=== PATIENT | male | born 1945 | race Caucasian/White ===

== ENCOUNTER 2017-05-20 11:05 | Inpatient (IN) | payer MEDICARE ==
[~2017-05-20] VITALS: Ht 182.9 cm; Wt 102.0 kg
[~2017-05-20 11:05] MED LIST: ASPI-496 PO; BENA10TA2 PO; CARV3.122 PO; FURO20TA3 PO; GABA-826 PO; GLIM4TAB2 PO; INSU100V13 SQ; METF10002 PO; OMEP40CA6 PO; RIVA15TA PO; SIMV40TA3 PO; SULF1TAB24 PO
[2017-05-20 12:24] VITALS: BP 163/73
[2017-05-20 12:43] LABS: HEMATOCRIT 44.3 % (39.2-51.8); HEMOGLOBIN 14.3 g/dL (13.7-18.0); WHITE BLOOD COUNT 9.7 x10^3/uL (3.4-10)
[2017-05-20 12:57] LABS: ASPARTATE AMINO TRANSFERASE 19 U/L (15-37); BLOOD UREA NITROGEN 31 mg/dL (7-18)
[2017-05-20] MEDS ORDERED: HEPARIN 1,000 UNITS/ML, 10ML ONE (14:54)
[2017-05-20] MEDS ORDERED: PROTAMINE SULFATE 10 MG/ML, 25ML ONE (14:54)
[2017-05-20] MEDS ORDERED: NITROGLYCERIN 5 MG/ML, 10ML ONE (14:54)
[2017-05-20] MEDS ORDERED: FENTANYL PF 100 MCG/2ML ONE (14:54)
[2017-05-20] MEDS ORDERED: MIDAZOLAM 1 MG/ML, 5ML ONE (14:54)
[2017-05-20] MEDS ORDERED: FLUMAZENIL 0.1 MG/1 ML, 5ML ONE (14:54)
[2017-05-20] MEDS ORDERED: LIDOCAINE 2%, 20ML ONE (14:54)
[2017-05-20] MEDS ORDERED: NALOXONE 1 MG/ML, 2ML ONE (14:54)
[2017-05-20] MEDS ORDERED: hydrALAzine 20 MG/ML, 1ML ONE (15:17)
[2017-05-20 16:22] VITALS: BP 154/77
[2017-05-20] MEDS ORDERED: BISACODYL 10 MG SUPP PR PRN (17:00)
[2017-05-20] MEDS ORDERED: morphine SULFATE 10 MG/ML, 1ML IVPush PRN (17:00)
[2017-05-20] MEDS ORDERED: ENALAPRILAT 1.25 MG/ML, 2ML IVPush PRN (17:00)
[2017-05-20] MEDS ORDERED: DEXTROSE 4 GM TAB.CHEW PO PRN (17:00)
[2017-05-20] MEDS ORDERED: POLYETHYLENE GLYCOL 17 GM PACKET PO PRN (17:00)
[2017-05-20] MEDS ORDERED: HYDROcodone/APAP 5/325 TABLET PO PRN (17:00)
[2017-05-20] MEDS ORDERED: ACETAMINOPHEN 325 MG TABLET PO PRN (17:00)
[2017-05-20] MEDS ORDERED: DEXTROSE 50%, 50ML SYRINGE IVPush PRN (17:00)
[2017-05-20] MEDS ORDERED: DOCUSATE 100 MG CAPSULE PO PRN (17:00)
[2017-05-20] MEDS ORDERED: LABETALOL 5MG/ML, 20ML IVPush PRN (17:00)
[2017-05-20] MEDS ORDERED: DILTIAZEM 5 MG/ML, 5ML IVPush PRN (17:00)
[2017-05-20] MEDS ORDERED: GLUCAGON 1 MG IM PRN (17:00)
[2017-05-20] MEDS ORDERED: ONDANSETRON ODT 4 MG PO PRN (17:00)
[2017-05-20] MEDS: SODIUM CHLORIDE 0.9% 1,000 ML IV SCH (17:36)
[2017-05-20 19:29] VITALS: BP 150/71
[2017-05-20] MEDS: SODIUM CHLORIDE FLUSH 10ML SYR IVF SCH (20:53)
[2017-05-20] MEDS: CARVEDILOL 3.125 MG TABLET PO SCH (20:55)
[2017-05-20] MEDS: INSULIN ASPART 100 UNITS/ML, PEN SQ-INSULIN SCH (21:23)
[2017-05-21 02:28] VITALS: BP 126/74
[2017-05-21] MEDS: SODIUM CHLORIDE 0.9% 1,000 ML IV SCH (03:45)
[2017-05-21 05:31] LABS: BLOOD UREA NITROGEN 27 mg/dL (7-18)
[2017-05-21 05:36] LABS: HEMATOCRIT 36.9 % (39.2-51.8); WHITE BLOOD COUNT 6.4 x10^3/uL (3.4-10)
[2017-05-21 06:28] LABS: ANISOCYTOSIS 1+; OVALOCYTES 1+; POLYCHROMASIA 1+
[2017-05-21 07:47] VITALS: BP 157/77
[2017-05-21] MEDS: SODIUM CHLORIDE FLUSH 10ML SYR IVF SCH ×2 (08:36→22:55)
[2017-05-21] MEDS: BENAZEPRIL 10 MG TABLET PO SCH (08:37)
[2017-05-21] MEDS: FUROSEMIDE 20 MG TABLET PO SCH (08:37)
[2017-05-21] MEDS: INSULIN ASPART 100 UNITS/ML, PEN SQ-INSULIN SCH ×4 (08:40→22:56)
[2017-05-21] MEDS: CARVEDILOL 3.125 MG TABLET PO SCH ×2 (08:40→22:55)
[2017-05-21] MEDS ORDERED: ONDANSETRON 2MG/ML, 2ML ONE ×2 (10:12→12:38)
[2017-05-21] MEDS ORDERED: DEXAMETHASONE 4 MG/ML, 1ML ONE ×2 (10:12→12:38)
[2017-05-21] MEDS ORDERED: ROCURONIUM 10MG/ML,5ML ONE (10:12)
[2017-05-21] MEDS ORDERED: SUCCINYLCHOLINE 20 MG/ML, 10ML ONE ×2 (10:12→12:38)
[2017-05-21] MEDS ORDERED: PROPOFOL 10 MG/ML, 20ML ONE ×2 (10:12→12:38)
[2017-05-21] MEDS ORDERED: VASOPRESSIN 20 UNIT/ML, 1ML ONE ×2 (10:12→12:38)
[2017-05-21] MEDS: GLIMEPIRIDE 4 MG TABLET PO SCH (10:47)
[2017-05-21] MEDS: OMEPRAZOLE 20 MG CAPSULE.DR PO SCH (10:48)
[2017-05-21] MEDS ORDERED: THROMBIN 20,000 UNIT VIAL TP ONE (12:38)
[2017-05-21] MEDS ORDERED: BACITRACIN 50,000 UNIT ONE (12:38)
[2017-05-21] MEDS ORDERED: PROTAMINE SULFATE 10 MG/ML, 5ML ONE (12:38)
[2017-05-21] MEDS ORDERED: HEPARIN 1,000 UNITS/ML, 10ML ONE (12:38)
[2017-05-21] MEDS ORDERED: MIDAZOLAM 1 MG/ML, 2ML ONE (12:38)
[2017-05-21] MEDS ORDERED: PHENYLEPHRINE 10 MG/ML ONE (12:38)
[2017-05-21] MEDS ORDERED: ROCURONIUM 10 MG/ML ONE (12:38)
[2017-05-21] MEDS ORDERED: FENTANYL PF 100 MCG/2ML ONE ×3 (12:38→15:30)
[2017-05-21] MEDS ORDERED: CEFAZOLIN 1,000 MG ONE (12:38)
[2017-05-21] MEDS ORDERED: NEOSPORIN OINT, 15GM ONE ×2 (12:38→14:52)
[2017-05-21] MEDS ORDERED: HYDROmorphone 1 MG/ML, 1ML ONE (12:38)
[2017-05-21] MEDS ORDERED: LIDOCAINE-MPF 2% ,5ML ONE (12:38)
[2017-05-21] MEDS ORDERED: LABETALOL 5MG/ML, 20ML IV PRN (14:00)
[2017-05-21] MEDS ORDERED: hydrALAzine 20 MG/ML, 1ML IV PRN (14:00)
[2017-05-21] MEDS ORDERED: HYDROcodone/APAP 7.5-325MG/15ML UDC PO PRN (14:00)
[2017-05-21] MEDS ORDERED: OXYcodone 5 MG/5 ML ORAL.SOL UDC PO PRN (14:00)
[2017-05-21] MEDS ORDERED: HYDROmorphone 1 MG/ML, 1ML IV PRN (14:00)
[2017-05-21] MEDS ORDERED: FENTANYL PF 100 MCG/2ML IV PRN (14:00)
[2017-05-21] MEDS ORDERED: LORazepam 2 MG/ML, 1ML IVPush PRN (14:00)
[2017-05-21] MEDS ORDERED: ONDANSETRON 2MG/ML, 2ML IVPush PRN (14:00)
[2017-05-21] MEDS ORDERED: OXYcodone 5 MG/5 ML ORAL.SOL UDC ONE (15:30)
[2017-05-21 16:45] VITALS: BP 131/77
[2017-05-21] MEDS ORDERED: MORPHINE SULFATE 4 MG/ML, 1ML IV PRN (18:00)
[2017-05-21] MEDS ORDERED: OXYcodone IR 5MG TABLET PO PRN (18:30)
[2017-05-21 19:04] VITALS: BP 136/82
[2017-05-21] MEDS ORDERED: INSULIN DETEMIR 100 UNITS/ML, PEN SQ-INSULIN SCH (21:00)
[2017-05-21] MEDS ORDERED: SIMVASTATIN 40 MG TABLET PO SCH (21:00)
[2017-05-22 00:15] VITALS: BP 151/78
[2017-05-22 04:03] VITALS: BP 131/76
[2017-05-22 05:17] LABS: HEMOGLOBIN 11.5 g/dL (13.7-18.0); WHITE BLOOD COUNT 9.6 x10^3/uL (3.4-10)
[2017-05-22 05:27] LABS: BLOOD UREA NITROGEN 29 mg/dL (7-18)
[2017-05-22] MEDS: OMEPRAZOLE 20 MG CAPSULE.DR PO SCH (07:51)
[2017-05-22] MEDS: GLIMEPIRIDE 4 MG TABLET PO SCH (07:51)
[2017-05-22] MEDS: BENAZEPRIL 10 MG TABLET PO SCH (07:52)
[2017-05-22] MEDS: FUROSEMIDE 20 MG TABLET PO SCH (07:52)
[2017-05-22] MEDS: INSULIN ASPART 100 UNITS/ML, PEN SQ-INSULIN SCH ×4 (07:54→22:20)
[2017-05-22] MEDS ORDERED: metFORMIN 500 MG TABLET PO SCH (08:00)
[2017-05-22] MEDS: SODIUM CHLORIDE FLUSH 10ML SYR IVF SCH ×2 (08:56→22:18)
[2017-05-22] MEDS: CARVEDILOL 3.125 MG TABLET PO SCH ×2 (08:56→22:19)
[2017-05-22 08:57] VITALS: BP 142/72
[2017-05-22 09:03] VITALS: BP 148/72
[2017-05-22] MEDS ORDERED: SODIUM CHLORIDE 0.9%, 500ML IVBOLUS ONE (11:30)
[2017-05-22 12:28] VITALS: BP 124/60
[2017-05-22] MEDS ORDERED: INSULIN DETEMIR 100 UNITS/ML, PEN SQ-INSULIN SCH (17:00)
[2017-05-22 20:36] VITALS: BP 144/70
[2017-05-22] MEDS ORDERED: ATORVASTATIN 20 MG TABLET PO SCH (21:00)
[2017-05-23 01:45] VITALS: BP 124/70
[2017-05-23 06:16] LABS: WHITE BLOOD COUNT 9.1 x10^3/uL (3.4-10)
[2017-05-23 06:32] LABS: BLOOD UREA NITROGEN 29 mg/dL (7-18)
[2017-05-23 07:32] VITALS: BP 156/80
[2017-05-23] MEDS ORDERED: INSULIN DETEMIR 100 UNITS/ML, PEN SQ-INSULIN SCH (08:00)
[2017-05-23] MEDS: INSULIN ASPART 100 UNITS/ML, PEN SQ-INSULIN SCH (08:59)
[2017-05-23] MEDS: CARVEDILOL 3.125 MG TABLET PO SCH (08:59)
[2017-05-23] MEDS: OMEPRAZOLE 20 MG CAPSULE.DR PO SCH (08:59)
[2017-05-23] MEDS: BENAZEPRIL 10 MG TABLET PO SCH (09:00)
[2017-05-23] MEDS: SODIUM CHLORIDE FLUSH 10ML SYR IVF SCH (09:01)
[2017-05-23] MEDS ORDERED: OXYC-302 PO (10:14)
[2017-05-25] MEDS ORDERED: RIVAROXABAN 15 MG TABLET PO SCH (17:00)
== END 2017-05-23 10:38 | disposition home or self-care (01) | DRG 253 ==
LOC: OUT 11:05 → 5SO 16:08 → OUT 16:41 → 5SO 16:42 → 4NOR 05-21 16:35 → DCLOUNGE 05-23 10:10
PROVIDERS: ADMIT Surgery; ATTEND Surgery
PROC: B41D1ZZ Fluoroscopy of Aorta and Bilateral Lower Extremity Arteries using Low Osmolar Contrast (ICD-10-PCS; 2017-05-20)
PROC: 041K0JJ Bypass Right Femoral Artery to Left Femoral Artery with Synthetic Substitute, Open Approach (ICD-10-PCS; principal; 2017-05-21 13:00)
DX: I70.4 Atherosclerosis of autologous vein bypass graft(s) of the extremities (principal); I48.92 Unspecified atrial flutter; N17.9 Acute kidney failure, unspecified; D68.69 Other thrombophilia; T87.89 Other complications of amputation stump; I48.91 Unspecified atrial fibrillation; I11.0 Hypertensive heart disease with heart failure; I50.9 Heart failure, unspecified; I45.10 Unspecified right bundle-branch block; Y83.8 Other surgical procedures as the cause of abnormal reaction of the patient, or of later complication, without mention of misadventure at the time of the procedure; E11.9 Type 2 diabetes mellitus without complications; E78.5 Hyperlipidemia, unspecified; I25.10 Atherosclerotic heart disease of native coronary artery without angina pectoris; J44.9 Chronic obstructive pulmonary disease, unspecified; Z66 Do not resuscitate; Z86.79 Personal history of other diseases of the circulatory system; Z87.891 Personal history of nicotine dependence; Z90.49 Acquired absence of other specified parts of digestive tract; Z95.1 Presence of aortocoronary bypass graft
CPT/HCPCS: 36200; 36415; 75630; 80048; 80053; 82040; 82962; 83036; 83735; 84100; 85025; 85610; 85730; 86850; 86900; 93005; 99156; 99157; C1894; J0690; J1100; J1170; J1644; J1815; J2250; J2405; J2704; J2720; J3010; J3490; Q0162; C1751; C1768; C1769; J0330; J0360; J2310; J2370; J7030; J7040